=== PATIENT | male | born 1980 | race Caucasian/White ===

== ENCOUNTER 2018-11-05 06:50 | Day surgery (SDC) | payer OTHER ==
[2018-11-04 10:22] VITALS: BMI 31.2
[2018-11-05] MEDS ORDERED: Sodium Chloride 0.9% 10 ML ONE (06:59)
[2018-11-05] MEDS ORDERED: Scopolamine 1.5 mg/72 hour Patch ONE (07:11)
[2018-11-05] MEDS ORDERED: Midazolam HCl 2 mg/2 ml Vial ONE (07:26)
[2018-11-05] MEDS ORDERED: Fentanyl 100 MCG/2 ML VIAL ONE ×2 (07:33→09:37)
[2018-11-05 07:34] LABS: #Basophils 0.1 thou/uL (0.0-0.2); #Eosinphils 0.1 thou/uL (0.0-0.7); #Lymphocytes 1.8 thou/uL (1.20-3.40); #Monocytes 0.5 thou/uL (0.11-0.59); #Neutrophils 2.3 thou/uL (1.40-6.50); %Basophils 1.6 % (0.0-1.0); %Eosinophils 2.2 % (0.0-10.0); %Lymphocytes 37.2 % (21.0-51.0); %Monocytes 11.4 % (0.0-10.0); %Neutrophils 47.7 % (42.0-75.0); Hemoglobin 14.7 g/dL (14.0-18.0); Mean Corpuscular HGB CONC 33.2 g/dL (32.0-36.0); Mean Corpuscular Volume 96.5 fL (78.0-98.0); Mean Platelet Volume 7.4 fL (7.4-10.4); Platelet Count 159 thou/uL (130-400); RBC Distribution Width 11.6 % (11.5-14.5); White Blood Cell (WBC) Count 4.7 thou/uL (4.8-10.8)
[2018-11-05 07:52] LABS: Anion Gap 10 mmol/L (10-20); BUN (Urea Nitrogen) 22 mg/dL (8.9-20.6); Calc. Creatinine Clearance 156 mL/min (70-130); Calcium 9.6 mg/dL (7.8-10.44); Carbon Dioxide 25 mmol/L (22-29); Chloride 109 mmol/L (98-107); Estimated GFR-MDRD Greater than 90; Glucose 98 mg/dL (70-105); Potassium 4.3 mmol/L (3.5-5.1); Sodium 140 mmol/L (136-145)
--- NOTE | 2018-11-05 10:24 | OP ---
DATE OF PROCEDURE: 11/05/2018 INSTRUMENT AND CONTROLS TECHNICIAN: Lonnie Lyon PA-C PROCEDURES PERFORMED: Anterior cervical diskectomy C5-C6, interbody arthrodesis, intervertebral biomechanical device, local morselized autograft, demineralized bone matrix, anterior titanium instrumentation, C5-C6. DESCRIPTION OF PROCEDURE: The patient was brought to the operating room and intubated. He was positioned supine with the head in modest extension on a gel-filled donut. An incision was made in the right precervical area and dissected medial to the sternocleidomastoid muscle, identified the anterior cervical spinal, and the level was confirmed by x-ray. We placed distraction across C5-C6, removed the intervertebral disk and completely decompressed the neural elements beneath the posterior longitudinal ligament from foramen to foramen. Next, bony endplates were decorticated for the purpose of arthrodesis and appropriate-sized intervertebral biomechanical PEEK device was brought into the field, filled with demineralized bone matrix, local morselized autograft, and tapped in place securely at C5-C6. Next, an anterior plate was brought into the field and secured to C5 and C6 using two 14-mm screws at each level. The wound was then extensively irrigated and MAC hemostasis was secured and the wound was closed in anatomic layers. Job ID: [id number]
[2018-11-05] MEDS ORDERED: Morphine 4 MG/ML VIAL ONE (10:31)
[2018-11-05] MEDS ORDERED: Cyclobenzaprine 10 MG TAB ONE (11:08)
[2018-11-05] MEDS ORDERED: Ketorolac Tromethamine 30 MG/ML VIAL ONE (11:14)
[2018-11-05] MEDS ORDERED: Morphine 2 MG/ML SYRINGE ONE (11:41)
[2018-11-05] MEDS ORDERED: HYDROcodone/Acetaminophen 5/325 mg Tablet ONE (13:13)
--- NOTE | 2018-11-05 16:16 | EKG ---
Test Reason : PREOP Blood Pressure : / mmHG Vent. Rate : 066 BPM Atrial Rate : 066 BPM P-R Int : 138 ms QRS Dur : 086 ms QT Int : 388 ms P-R-T Axes : 043 022 017 degrees QTc Int : 406 ms Normal sinus rhythm with sinus arrhythmia Normal ECG No previous ECGs available Confirmed by BLANCA DE LOS SANTOS ([id number]) on 11/05/2018 4:15:57 PM Referred By: WALTER Confirmed By:BLANCA DE LOS SANTOS
== END 2018-11-05 13:30 | disposition home or self-care (01) ==
LOC: SDC 06:50
PROVIDERS: ATTEND Neurological Surgery
PROC: 0RG10A0 Fusion of Cervical Vertebral Joint with Interbody Fusion Device, Anterior Approach, Anterior Column, Open Approach (ICD-10-PCS; principal; 2018-11-05)
PROC: 0RT30ZZ Resection of Cervical Vertebral Disc, Open Approach (ICD-10-PCS; principal; 2018-11-05)
DX: M54.12 Radiculopathy, cervical region (principal); Z91.011 Allergy to milk products
CPT/HCPCS: 76000; 80048; 85025; 93005; 93010; C1713; C1776; J0690; J1885; J2250; J2270; J3010; J3490

== ENCOUNTER 2018-11-24 09:09 | Outpatient (CLI) | payer OTHER ==
--- NOTE | 2018-11-24 09:29 | RAD ---
XR Cerv Sp Ap Lat STANDARD: 11/24/2018 12:00 AM CLINICAL INDICATION: Cervical radiculopathy COMPARISON: None. FINDINGS: Fracture:No fracture. Arthropathy:Mild facet degeneration is seen at the lower cervical spine. ACDF of C5-C6 with intervening disc space prosthesis present. No hardware complication identified. No significant malalignment Incidental findings:None of significance. IMPRESSION: 1. No acute osseous abnormality, involving the postoperative cervical spine.
== END 2018-11-24 09:10 | disposition home or self-care (01) ==
LOC: TBSIIMAG 09:09
PROVIDERS: ATTEND Neurological Surgery
DX: M54.12 Radiculopathy, cervical region (principal); Z98.890 Other specified postprocedural states
CPT/HCPCS: 72040